=== PATIENT | male | born 1990 | race Asian ===

== ENCOUNTER 2021-01-09 08:23 | Outpatient (RCR) | payer BC, SELFPAY ==
[2021-01-09] MEDS: COVID-19 VACC, MRNA(PFIZER)/PF 30 MCG/0.3 ML SYRINGE IM (14:03)
== END 2021-02-26 23:59 ==
LOC: IMMUN 08:23
PROVIDERS: Referring Provider Family Medicine; Visit Provider Family Medicine
DX: Z23 Encounter for immunization (principal)
CPT/HCPCS: 0001A; 91300